=== PATIENT | female | born 1950 | race Caucasian/White ===

== ENCOUNTER → 2024-04-03 12:31 | Outpatient (REF) | payer MEDICARE, OTHER, SELFPAY | LOC: RAD 12:31 | PROVIDERS: ATTENDING PHYSICIAN Internal Medicine | DX: R05.3 Chronic cough (principal) | CPT/HCPCS: 71046 ==

== ENCOUNTER → 2024-05-24 13:26 | Outpatient (REF) | payer MEDICARE, OTHER, SELFPAY | LOC: WDC 13:26 | PROVIDERS: ATTENDING PHYSICIAN Internal Medicine | DX: Z12.31 Encounter for screening mammogram for malignant neoplasm of breast (principal); M81.0 Age-related osteoporosis without current pathological fracture | CPT/HCPCS: 77063; 77067; 77080 ==

== ENCOUNTER → 2025-03-25 12:14 | Outpatient (REF) | payer MEDICARE, OTHER, SELFPAY | LOC: RAD 12:14 | PROVIDERS: ATTENDING PHYSICIAN Internal Medicine | DX: M54.50 Low back pain, unspecified (principal) | CPT/HCPCS: 72100 ==

== ENCOUNTER → 2025-03-27 15:13 | Outpatient (REF) | payer MEDICARE, OTHER, SELFPAY | LOC: PAVMRI 15:13 | PROVIDERS: ATTENDING PHYSICIAN Internal Medicine | DX: M54.50 Low back pain, unspecified (principal) | CPT/HCPCS: 72148 ==

== ENCOUNTER 2025-05-05 23:47 | Emergency (ER) | payer MEDICARE, OTHER, SELFPAY ==
[2025-05-06 00:17] VITALS: BP 137/77
[2025-05-06 00:51] LABS: Hematocrit 40.4 % (37.0-47.0); Hemoglobin 13.9 g/dL (12.0-16.0); Mean Corp Hgb Conc. 34.4 g/dL (33.0-37.0); Mean Corpuscular Volume 91.4 fL (81.0-99.0); Nucleated Red Blood Cells % 0 %; Platelet Count 214 10^3/uL (130-400); Red Cell Dist. Width 13.0 % (11.5-14.5)
[2025-05-06 00:57] LABS: COVID-19 Antigen Positive (Negative)
[2025-05-06 01:14] LABS: ALT (SGPT) 183 U/L (0-35); AST (SGOT) 189 U/L (14-36); Albumin 4.0 g/dl (3.5-5.0); Alkaline Phosphatase 235 U/L (38-126); Blood Urea Nitrogen 13 mg/dl (7-17); Calcium 8.9 mg/dl (8.4-10.2); Carbon Dioxide 24 mmol/L (22-30); Chloride 104 mmol/L (98-107); Glucose 95 mg/dl (70-99); Potassium 3.7 mmol/L (3.5-5.1); Sodium 135 mmol/L (135-145); Total Protein 6.7 g/dl (6.3-8.2); eGFR > 60.00
[2025-05-06 01:25] LABS: Troponin I < 0.012 ng/ml
[2025-05-06 03:05] VITALS: BP 147/82
[2025-05-06 03:37] VITALS: BMI 28.1
--- NOTE | 2025-05-06 03:41 | ED.GENMED ---
History of Present Illness
General
Chief Complaint: Chest Pain
Source: patient
Exam Limitations: none
Time Seen by Provider: 05/06/25 03:14
Nursing documentation reviewed up to this point in time: agreed with
History of Present Illness
History of Present Illness:
75-year-old female with no past medical history presents to the ER today with concerns of chest pain. She has never had this before. It started this morning at 9:30 AM and lasted for around 15 minutes. Patient reports that she has had upper
respiratory infection and she saw her primary care provider this morning and she was started on cough medicine. She is never had pain like this before. She has been chest pain-free for multiple hours. She has been coughing a lot and pain seem to
start after a prolonged episode of coughing. She denies any cardiac history. She has never seen a mushroom sorter grader prior. She denies any shortness of breath. She has not had a fever
Past History
Past History
ED Past Medical History: None
ED Past Surgical History: Cholecystectomy and Gynecological
Social History
Tobacco: Non-smoker
Alcohol: Occasional
Drug: None
Personal:
Living: with family
Review of Systems
Review of Systems
All Other Systems: ROS reviewed and negative except as documented in HPI and ROS
Phy Exam
Physical Exam
Physical Exam:
General: Patient is well appearing and in no acute distress; non-toxic
Skin: Warm and dry, no rashes or lesions
Head: Normocephalic, atraumatic
Eyes: Sclera non-icteric. EOMs intact.
Cardiac: Regular rate and rhythm, no murmurs
Peripheral Vascular: No lower extremity swelling or edema
Pulm: Normal respiratory effort, no wheezes, rales, rhonchi
Abdomen: No abdominal tenderness to palpation, negative Pack sign
Neuro: CN II-XII intact, no focal neurologic deficits.
Psychiatric: Appropriate mood and affect.
Scores
Heart Score for Chest Pain Patients
STEMI patient?: No
History: Slightly or Non-Suspicious
ECG: Normal
Age: >/= 65 years
Risk Factors: No Risk Factors
Troponin: </= Normal Limit
Heart Score for Chest Pain Patients: 2
Heart Score Risk: 2.5% MACE over next 6 weeks
Course
Orders/Labs/Results
Orders:
Orders
05/06/25 00:23
ECG [Electrocardiogram (*1)] Urgent
Reason for Study: Chest Pain
EKG- Treatment ONCE
05/06/25 00:24
Electrocardiogram (*1) Urgent
Reason for Study: Other
Other Reason for Exam: Respiratory Distress
Cardiac Monitoring- Treatment ONCE
EKG- Treatment ONCE
CR Chest - 2 Views Urgent
Comment:
Reason For Exam: respiratory distress
O2 Therapy [RESP] Urgent
Titrate/Wean O2 to maintain O2 sat greater than (%): 93
Special Instructions: TO MAINTAIN CONTINUOUS O2 SATS >/= 93%
Pulse Ox/cont/shift [RESP] Urgent
Quantity: 1
Special Instructions: continuous pulse ox
05/06/25 00:33
COVID-19 Antigen Urgent
Source: Nasal Swab
Complete Blood Count/With Diff Urgent
Comprehensive Metabolic Panel Urgent
NT-proBNP Urgent
Troponin I Urgent
INF RAPID [Influenza A+B Rapid Molecular] Urgent
[facility] Source: Nasal Swab
Specimen Description:
Abnormal Lab Results
05/06/25
00:33
MCH 31.4 H pg
(27.0-31.0)
Absolute Monos (auto) 0.7 H 10^3/uL
(0.1-0.6)
Lymphocytes % 15.1 L %
(20.5-51.1)
Total Bilirubin 1.5 H mg/dl
(0.2-1.3)
AST 189 H U/L
(14-36)
ALT 183 H U/L
(0-35)
Alkaline Phosphatase 235 H U/L
(38-126)
SARS-CoV-2 Antigen Positive A
(Negative)
05/06/25 00:33
05/06/25 00:33
Vital Signs
Initial and Last Documented VS:
Initial Vital Signs
Temp Pulse Resp BP Pulse Ox
99.2 F 78 20 137/77 95
05/06/25 00:17 05/06/25 00:17 05/06/25 00:17 05/06/25 00:17 05/06/25 00:17
Last Documented Vital Signs
Temp Pulse Resp BP Pulse Ox
99.4 F 79 21 147/82 92
05/06/25 03:43 05/06/25 04:15 05/06/25 04:15 05/06/25 03:05 05/06/25 04:15
MDM/Problems Addressed
Differential Diagnosis Includes:
ddx include COVID-19, influenza, pneumonia, ACS, pleurisy, costochondritis
MDM/Problems Addressed:
75-year-old female presents to ER today with concerns of chest pain. This happened at 9:30 AM and lasted 15 minutes. She has not had any chest pain since. Of note, she has had a lot of coughing and has been dealing with upper respiratory
infection. She did test positive for COVID-19 here. On physical exam she is well-appearing no acute distress. Her lungs are clear. Her vital signs are stable. She is afebrile. Labs reviewed, no leukocytosis noted. She does have a
transaminitis with mildly elevated total bilirubin at 1.5.
She has no abdominal tenderness. No jaundice on exam. She did have her gallbladder on the past. Suspect viral transaminitis, recommended repeating blood work with her primary care provider in 1 week. Her troponin is undetectable. She went for
chest x-ray which showed no acute cardiopulmonary process. ECG shows no ST segment elevation, no concerning T wave inversions. Patient stable for discharge. Discussed close follow-up with PCP. Pain could have been from intercostal muscle strain
from coughing or pleurisy with current infection. Patient stable for discharge.
*Pulse Oximetry
SaO2: 91
Oxygen Mode of Delivery: Room air
Patient hypoxic: no
*Critical Care Note
Total Time (30-74mins, 75-104mins- exclusive of procedures): Not Applicable
ED Attending Note
-
Portions of this chart may have been created with voice recognition software.� Occasional wrong word or��sound alike� substitutions may have occurred due to the inherent limitations of voice recognition software.
Discharge Plan
Departure
Patient Disposition: Home (Routine Discharge)
Date of Disposition: 05/06/25
Time of Disposition: 04:37
Patient with high blood pressure during this ER visit?: Yes
Condition: Good
Discharge Problem:
COVID-19, Chest pain
Instructions: COVID-19 in adults (DC), Chest pain (DC), BLOOD PRESSURE
Prescriptions:
No Action
calcium carbonate-vitamin D3 1 TAB tablet
1 tab PO DAILY
Glucosamine Ds
1 tab PO DAILY
vitamin B complex Tablet
1 tab PO DAILY
Boniva
1 tab PO MONTHLY
Rx Instructions:
unsure of dosing
Referrals:
Bibi Garcia MD [Family Provider, Internal Medicine]
Mamta Correa DO [Active, Cardiology] - Call in 1-3 days for appt
Activity Restrictions/Additional Instructions:
Please continue monitor your symptoms. You can continue taking the cough medicine as prescribed by your primary care provider. You can take Tylenol as needed for fever.
As discussed, your troponin is undetectable.
Please follow-up your primary care fighter in 1 week and obtain repeat CMP.
PLEASE RETURN TO DEVELOP PERSISTENT CHEST PAIN, TROUBLE BREATHING, DIZZINESS, HEADEDNESS, FAINTING SPELLS, OR ANY OTHER SIGNS OR SYMPTOMS WORRISOME TO YOU.
Interventions
Interventions:
*General Assessment Last Done: 05/06/25 00:17
*Neglect/Abuse Screening Last Done: 05/06/25 00:17
*ED COVID-19 Vaccine History Last Done: 05/06/25 00:17
*ED Influenza Vaccine History Last Done: 05/06/25 00:17
[facility] Fall Risk Assessment Tool Last Done: 05/06/25 03:36
*Risk Screen - Suicide (C-SSRS) Last Done: 05/06/25 05:41
*Nursing Disposition Last Done: 05/06/25 05:41
ED- Cardiac Assessment Last Done: 05/06/25 03:25
ED- Pulmonary Assessment Last Done: 05/06/25 03:25
Discharge Date and Time
Discharge Date/Time: 05/06/25 04:45
Print Language: ARABIC
== END 2025-05-06 04:45 | disposition home or self-care (01) ==
LOC: EMR 23:47
PROVIDERS: Emergency Medicine; EMERGENCY PHYSICIAN Emergency Medicine; FAMILY PHYSICIAN Internal Medicine
DX: U07.1 COVID-19 (principal); R07.89 Other chest pain; R05.9 Cough, unspecified; R11.0 Nausea; Z11.52 Encounter for screening for COVID-19; J06.9 Acute upper respiratory infection, unspecified; R03.0 Elevated blood-pressure reading, without diagnosis of hypertension; Z90.49 Acquired absence of other specified parts of digestive tract; Z88.2 Allergy status to sulfonamides
CPT/HCPCS: 99285; 94760; 71046; 80053; 83880; 84484; 85025; 87502; 87811; 93005